=== PATIENT | male | born 1975 | race Hispanic/Latino ===

== ENCOUNTER 2023-01-17 23:32 | Emergency (ER) | payer SELFPAY ==
[~2023-01-17] VITALS: Ht 170.2 cm; Wt 78.0 kg
[2023-01-18] MEDS ORDERED: HYDROCODON-ACE1 EA10 PO (01:48)
--- NOTE | 2023-01-18 21:35 | EKG ---
[facility] [address] [facility] [place] [address] Signed Normal sinus rhythm Incomplete right bundle branch block Borderline ECG No previous ECGs available Confirmed by Vandana Georges MD () on 01/18/2023 9:35:48 PM Electronically Signed By: VANDANA GEORGES MD 01/18/23 2135 PATIENT NAME: MAURILIO CASTILLOJASDEON Electrocardiogram DATE OF : 75 PHYSICIAN: VANDANA GEORGES MD REPORT #: [id number] REPORT IS CONFIDENTIAL AND NOT TO BE RELEASED WITHOUT AUTHORIZATION
== END 2023-01-18 02:30 | disposition home or self-care (01) ==
LOC: ED 23:32
DX: R07.89 Other chest pain (principal); R51.9 Headache, unspecified; B34.9 Viral infection, unspecified; J45.909 Unspecified asthma, uncomplicated; Z20.822 Contact with and (suspected) exposure to COVID-19
CPT/HCPCS: 36415; 71045; 80053; 83735; 83880; 84484; 85025; 85379; 85610; 87502; 93005; 93010; 96374; 96375; 99285-25; A9270; J1170; J2270; J7121; U0003